=== PATIENT | female | born 1995 | race Caucasian/White ===

== ENCOUNTER 2022-03-05 09:38 | Inpatient (IN) ==
[2022-03-05] MEDS ORDERED: Metoclopramide 10 MG/2 ML VIAL IVP ONE (09:48)
[2022-03-05] MEDS ORDERED: Ringers Solution, Lactated 1,000 ML IVC ONE (09:48)
[2022-03-05] MEDS ORDERED: Famotidine 20 MG/2 ML VIAL IVP ONE (09:48)
[2022-03-05] MEDS ORDERED: CeFAZolin Syr 3,000MG/30 ML 3,000 MG/30 ML SYRINGE IVPB ONE (09:48)
[2022-03-05] MEDS ORDERED: OXYTOCIN/RINGERS LACTATE 10 UNIT/166.6 ML BAG IVC ONE (09:48)
[2022-03-05] MEDS ORDERED: Ringers Solution, Lactated 1,000 ML IVC SCH ×2 (10:00→16:14)
[2022-03-05 10:58] LABS: Basophils % 0.4 %; Eosinophils % 0.3 %; Hematocrit 35.7 % (35.3-44.9); Hemoglobin 12.4 g/dL (11.5-15.4); Immature Granulocytes % 0.6 % (0-4); Lymphocytes # 1.5 K/mcL (0.6-4.6); Lymphocytes % 15.8 %; Mean Corpuscular HGB Conc 34.7 g/dL (31.6-35.5); Mean Corpuscular Hemoglobin 33.4 pg (28.0-33.3); Mean Corpuscular Volume 96.2 fL (83.0-100.0); Mean Platelet Volume 10.1 fL (9.4-12.4); Monocytes # 0.5 K/mcL (0.0-1.3); Monocytes % 4.8 %; Neutrophils # 7.5 K/mcL (1.6-8.9); Platelet Count 231 K/mcL (140-400); Red Blood Count 3.71 M/mcL (3.82-4.97); Red Cell Distribution Width 13.6 % (11.5-14.5); Segmented Neutrophils % 78.1 %; White Blood Count 9.6 K/mcL (4.3-11.1)
[2022-03-05 11:05] LABS: Amphetamine Screen,Urine Negative ng/mL (Cutoff=1000); Barbiturate Screen,Urine Negative ng/mL (Cutoff=200); Benzodiazepines Screen,Urine Negative ng/mL (Cutoff=200); Cannabinoid Screen,Urine Negative ng/mL (Cutoff = 50); Cocaine Screen,Urine Negative ng/mL (Cutoff= 300); Opiate Screen,Urine Negative ng/mL (Cutoff=300); Phencyclidine Screen,Urine Negative ng/mL (Cutoff=25)
[2022-03-05] MEDS ORDERED: *HR* Morphine Sulfate/PF 10 MG/10 ML AMPUL ONE (11:18)
[2022-03-05] MEDS ORDERED: Ondansetron 4 MG/2 ML VIAL ONE (11:18)
[2022-03-05] MEDS ORDERED: *HR* FentaNYL (PF) 100 MCG/2 ML VIAL ONE (11:18)
[2022-03-05] MEDS ORDERED: *HR* Phenylephrine 10 MG/ML VIAL ONE (11:18)
[2022-03-05] MEDS ORDERED: Naloxone 0.4 MG/ML INJ IVP PRN ×2 (11:32→16:14)
[2022-03-05] MEDS ORDERED: *HR* FentaNYL (PF) 100 MCG/2 ML VIAL IVP PRN (11:32)
[2022-03-05] MEDS ORDERED: Promethazine 6.25 MG in Water for inj. (sterile) 20 ML IVPB PRN (11:32)
[2022-03-05] MEDS ORDERED: *HR* Nalbuphine 10 MG/ML AMPUL IV PRN (11:34)
[2022-03-05] MEDS: Oxytocin 30 UNIT/503 ML BAG IVC SCH ×4 (13:15→16:15)
[2022-03-05] MEDS ORDERED: Acetaminophen IV 1,000 MG/100 ML BAG IVPB ONE (13:31)
[2022-03-05] MEDS ORDERED: Ringers Solution, Lactated 1,000 ML ONE (13:46)
[2022-03-05] MEDS ORDERED: Ketorolac 30 MG/ML VIAL ONE (13:53)
[2022-03-05] MEDS ORDERED: Simethicone 80 MG TAB.CHEW PO PRN (16:14)
[2022-03-05] MEDS ORDERED: Metoclopramide 10 MG/2 ML VIAL IVP PRN (16:14)
[2022-03-05] MEDS ORDERED: Rho Immune Globulin 1,500 UNIT SYRINGE IM ONE (16:14)
[2022-03-05] MEDS ORDERED: Oxytocin 30 UNIT/503 ML BAG IVC SCH (16:14)
[2022-03-05] MEDS ORDERED: Ondansetron 4 MG/2 ML VIAL IVP PRN (16:14)
[2022-03-05] MEDS: *HR* OxyCODONE Immed Rel 5 MG TABLET PO PRN (16:35)
[2022-03-05] MEDS: Ibuprofen 600 MG TABLET PO SCH (19:43)
[2022-03-05] MEDS: Acetaminophen 325 MG TABLET PO SCH (19:43)
[2022-03-05] MEDS: *HR* Enoxaparin 60 MG/0.6 ML SYRINGE SQ SCH (19:43)
[2022-03-06] MEDS: *HR* OxyCODONE Immed Rel 5 MG TABLET PO PRN ×2 (01:04→09:00)
[2022-03-06 04:40] LABS: Basophils % 0.4 %; Eosinophils # 0.1 K/mcL (0.0-0.6); Eosinophils % 0.6 %; Hematocrit 31.3 % (35.3-44.9); Immature Granulocytes % 0.8 % (0-4); Lymphocytes # 2.4 K/mcL (0.6-4.6); Lymphocytes % 23.2 %; Mean Corpuscular HGB Conc 34.2 g/dL (31.6-35.5); Mean Corpuscular Hemoglobin 32.8 pg (28.0-33.3); Mean Platelet Volume 10.5 fL (9.4-12.4); Monocytes # 0.7 K/mcL (0.0-1.3); Monocytes % 6.8 %; Neutrophils # 7.2 K/mcL (1.6-8.9); Platelet Count 203 K/mcL (140-400); Red Blood Count 3.26 M/mcL (3.82-4.97); Red Cell Distribution Width 13.8 % (11.5-14.5); Segmented Neutrophils % 68.2 %; White Blood Count 10.5 K/mcL (4.3-11.1)
[2022-03-06 04:42] LABS: Hemoglobin 10.7 g/dL (11.5-15.4)
[2022-03-06] MEDS: Acetaminophen 325 MG TABLET PO SCH (05:52)
[2022-03-06] MEDS: *HR* Enoxaparin 60 MG/0.6 ML SYRINGE SQ SCH (05:52)
[2022-03-06] MEDS: Ibuprofen 600 MG TABLET PO SCH (05:52)
[2022-03-06 08:18] VITALS: O2SAT 98
[2022-03-06] MEDS ORDERED: Prenatal Vit/FA 1 EACH TABLET PO SCH (09:00)
[2022-03-06 11:37] VITALS: BP 107/72; PULSE 84; TEMP 97.9
== END 2022-03-06 15:51 | disposition home or self-care (01) | DRG 539 ==
LOC: 1NENULAB 09:38 → 1NENUOBS 16:17
PROVIDERS: ADMIT Obstetrics & Gynecology; ATTEND Obstetrics & Gynecology